=== PATIENT | female | born 1975 | race Caucasian/White ===

== ENCOUNTER 2018-10-16 09:49 | Emergency (ER) | payer MEDICAID ==
[~2018-10-16] VITALS: Wt 89.6 kg
[~2018-10-16 09:49] MED LIST: LORA-441 PO; PREN1TAB12 PO; PRENATAL VITAMINS
[2018-10-16 09:53] VITALS: BP 123/74; PULSE 73; RESP 18
--- NOTE | 2018-10-16 10:53 | ERD ---
ER Documentation Chief Complaint Chief Complaint BODY ACHES, VOMITING AND DIARRHEA HPI 43-year-old female, presents to the emergency department, complaining of acute onset of explosive, watery diarrhea after eating fish at work. The patient reports approximately more than 10 episodes during the last 24 hours, associated with subjective fever and general malaise. She denies abdominal pain, no rashes, no headache. ROS All systems reviewed and are negative except as per history of present illness. Medications Home Meds Active Scripts Ciprofloxacin Hcl* (Ciprofloxacin Hcl*) 250 Mg Tablet, 250 MG PO BID for 3 Days, #6 TAB Prov:CHIOMA HONEYCUTT MD 10/16/18 Hydrocodone/Acetaminophen ([place] 5-325 Tablet) 1 Each Tablet, 1 TAB PO Q6H PRN for PAIN, #7 TAB Prov:CHIOMA HONEYCUTT MD 10/16/18 Lorazepam* (Ativan*) 0.5 Mg Tablet, 0.5 MG PO Q8H PRN for ANXIETY, #10 TAB Prov:JACKY COBOS NP 05/23/15 Reported Medications Vit/Fe Fumarate/Fa ( 1-1 Tablet) 1 Tab Tablet, 1 PO DAILY 05/14/11 [ Vitamins] No Conflict Check 12/25/10 Allergies Allergies: Coded Allergies: No Known Allergies (Verified Allergy, Mild, 12/25/10) PMhx/Soc History of Surgery: No Anesthesia Reaction: No Hx Neurological Disorder: No Hx Respiratory Disorders: No Hx Cardiac Disorders: No Hx Psychiatric Problems: Yes (ANXIETY) Hx Miscellaneous Medical Probl: No Hx Alcohol Use: No Hx Substance Use: No Hx Tobacco Use: No Physical Exam Vitals Vital Signs Date Temp Pulse Resp B/P (MAP) Pulse Ox O2 O2 Flow FiO2 Time Delivery Rate 10/16/18 98.9 73 18 123/74 99 09:53 (90) Physical Exam Const: No acute distress Head: Atraumatic Eyes: Normal Conjunctiva ENT: Normal External Ears, Nose and Mouth. Neck: Full range of motion. No meningismus. Resp: Clear to auscultation bilaterally Cardio: Regular rate and rhythm, no murmurs Abd: Soft, non tender, non distended. Normal bowel sounds Skin: No petechiae or rashes Back: No midline or flank tenderness Ext: No cyanosis, or edema Neur: Awake and alert Psych: Normal Mood and Affect Results 24 hrs Current Medications Medications Dose Sig/Justo Start Time Status Last (Trade) Ordered Route PRN Stop Time Admin Dose Reason Admin Ondansetron 8 mg ONCE STAT 10/16/18 DC 10/16/18 HCl (Zofran ODT 10:59 10/16/18 11:04 Odt) 11:00 325 mg ONCE ONCE 10/16/18 DC 10/16/18 Acetaminophen PO 11:00 10/16/18 11:04 (Tylenol 11:01 Tab) Procedures/MDM At the time of discharge, vital signs stable, patient tolerating p.o, no abdominal pain. Differential diagnosis include but not limited to: Gastroenteritis, UTI, constipation, appendicitis, bowel obstruction, food intolerance, thyroid disease, electrolyte imbalance, medication side effect. Physical examination and clinical presentation consistent most likely with acute gastroenteritis, low suspicion for acute abdomen. Results and clinical impression discussed with the parent who agreed with management. The patient is stable to be treated outpatient and will be discharged home. some side effects of prescribed medications (headache, rash, nausea, vomiting, diarrhea, interactions with other medications) were reviewed. Follow up with the primary care provider in the next 48h is recommended. If symptoms persist, worsen or new symptoms develop, then patient should return to the ED immediately. Instructions explained and given directly by me to the patient with acknowledgment and demonstrated understanding. Disclaimer: Inadvertent spelling and grammatical errors are likely due to EHR/dictation software use and do not reflect on the overall quality of patient care. Also, please note that the electronic time recorded on this note does not necessarily reflect the actual time of the patient encounter. Departure Diagnosis: Primary Impression: Infectious gastroenteritis Condition: Stable Additional Instructions: Muchas ross por [facility] para juárez servicio. Esperamos que en juárez visita a la alicia de emergencia juárez problema medico haya sido solucionado y que se sienta mucho mejor. Para estar seguros que juárez mejoria sigue en proceso, le pedimos el favor de hacer miguel alex de seguimiento medico con juárez doctor primario en los proximos 2-4 curtis. Lleve con usted estos documentos y las medicinas recetadas. Si mynor sintomas empeoran, NO SE ESPERE, por favor regrese a alicia de emergencia INMEDIATAMENTE. En siddhartha que usted no tenga un mdico de atencin primaria: Llame al mdico o clnica comunitaria de referencia que aparece abajo shelia las horas de consultorio para hacer miguel alex para que le vean. CLINICAS: [facility] [phone] [address] [facility] [phone] [facility] [phone] [facility] [phone] [address] [place] [phone] [address] [facility]. [phone] CHIOMA HERRERA MD Oct 16, 2018 10:53
[2018-10-16] MEDS ORDERED: ONDANSETRON (ODT) 4 MG TAB ODT STA (10:59)
[2018-10-16] MEDS ORDERED: ACETAMINOPHEN 325 MG TAB PO ONE (11:00)
[2018-10-16] MEDS ORDERED: HYDR-4011 PO (11:00)
[2018-10-16] MEDS ORDERED: CIPR-193 PO (11:00)
== END 2018-10-16 11:16 | disposition home or self-care (01) ==
LOC: FTE 09:49
DX: A09 Infectious gastroenteritis and colitis, unspecified (principal)
CPT/HCPCS: Z7502; Z7610; 99283